=== PATIENT | female | born 1975 ===

== ENCOUNTER 2019-03-06 07:48 | Emergency (ER) | payer BC, OTHER ==
--- NOTE | 2019-03-06 08:09 | EDM.PDOC ---
ED HPI GENERAL MEDICAL PROBLEM - General Chief Complaint: ENT Problem Stated Complaint: POSSIBLE SINUS INFECTION Time Seen by Provider: 03/06/19 08:07 Source of Information: Reports: Patient - History of Present Illness INITIAL COMMENTS - FREE TEXT/NARRATIVE: HISTORY AND PHYSICAL: History of present illness: [With history of sinus infection presents with left sinus pain maxillary involvement no fever nausea vomiting chills sweats no chest pain shortness of breath headache dizziness or palpitation no bowel or urine symptoms Patient has] blood with ENT in the past she has been prescribed [id number]- Paks which she has had no reaction with along with prednisone she does use Revloc pot but is also allergic to many of the over the counter products hence is limited in what she can take Review of systems: As per history of present illness and below otherwise all systems reviewed and negative. Past medical history: As per history of present illness and as reviewed below otherwise noncontributory. Surgical history: As per history of present illness and as reviewed below otherwise noncontributory. Social history: No reported history of drug or alcohol abuse. Family history: As per history of present illness and as reviewed below otherwise noncontributory. Physical exam: HEENT: Atraumatic, normocephalic, pupils reactive, negative for conjunctival pallor or scleral icterus, mucous membranes moist, throat clear, neck supple, nontender, trachea midline. Tenderness left greater than right maxillary sinus no supraorbital tenderness tympanic membranes mildly injected no meningeal signs Lungs: Clear to auscultation, breath sounds equal bilaterally, chest nontender. Heart: S1S2, regular, negative for clicks, rubs, or JVD. Abdomen: Soft, nondistended, nontender. Negative for masses or hepatosplenomegaly. Negative for costovertebral tenderness. Pelvis: Stable nontender. Genitourinary: Deferred. Rectal: Deferred. Extremities: Atraumatic, negative for cords or calf pain. Neurovascular unremarkable. Neuro: Awake, alert, oriented. Cranial nerves II through XII unremarkable. Cerebellum unremarkable. Motor and sensory unremarkable throughout. Exam nonfocal. Diagnostics: [Clinical ] Therapeutics: [zPAC Prednisone ] Impression: [Sinusitits Definitive disposition and diagnosis as appropriate pending reevaluation and review of above. Sinus Pain Score (Numeric/FACES): 5 - Related Data Allergies Allergy/AdvReac Type Severity Reaction Status Date / Time azithromycin Allergy Shortness Verified 03/06/19 08:04 of Breath ciprofloxacin [From Cipro] Allergy Shortness Verified 08/29/15 09:57 of Breath ciprofloxacin HCl Allergy Shortness Verified 08/29/15 09:57 [From Cipro] of Breath erythromycin base Allergy Nausea Verified 08/29/15 09:57 [Erythromycin Base] montelukast sodium Allergy Shortness Verified 08/29/15 09:57 [From Singulair] of Breath Sulfa (Sulfonamide Allergy Nausea Verified 08/29/15 09:57 Antibiotics) Home Meds: Home Meds Cetirizine [ZyrTEC] 10 mg PO DAILY 08/29/15 [History] Levothyroxine Sodium [Levoxyl] 88 mcg PO DAILY 08/29/15 [History] Pantoprazole Sodium 20 mg PO BID 08/29/15 [History] Albuterol [Ventolin HFA] 1 puff INH ASDIRECTED PRN 01/12/16 [History] Budesonide [Pulmicort] 0.5 mg IH DAILY 03/06/19 [History] Past Medical History HEENT History: Reports: Allergic Rhinitis Cardiovascular History: Reports: None Respiratory History: Reports: Asthma (moderate) Gastrointestinal History: Reports: Other (See Below) Other Gastrointestinal History: heartburn and epigastric pain Genitourinary History: Reports: None [employer] History: Reports: Musculoskeletal History: Reports: None Neurological History: Reports: None Psychiatric History: Reports: Anxiety Endocrine/Metabolic History: Reports: Hypothyroidism, Other (See Below) Hematologic History: Reports: None Immunologic History: Reports: None Oncologic (Cancer) History: Reports: None Dermatologic History: Reports: None - Past Surgical History Head Surgeries/Procedures: Reports: None GI Surgical History: Reports: Cholecystectomy (09/01/15) ED ROS ENT - Review of Systems Review Of Systems: See Below ED EXAM, ENT - Physical Exam Exam: See Below Course - Vital Signs Last Recorded V/S: Last Vital Signs Temp 98.5 F 03/06/19 08:02 Pulse 81 03/06/19 08:02 Resp 18 03/06/19 08:02 BP 135/69 03/06/19 08:02 Pulse Ox 98 03/06/19 08:02 Departure - Departure Time of Disposition: 08:09 Disposition: Home, Self-Care 01 Condition: Good Clinical Impression: Sinusitis - Discharge Information Referrals: Ede Watson MD [Primary Care Provider] - Additional Instructions: The following information is given to patients seen in the emergency department who are being discharged to home. This information is to outline your options for follow-up care. We provide all patients seen in our emergency department with a follow-up referral. The need for follow-up, as well as the timing and circumstances, are variable depending upon the specifics of your emergency department visit. If you don't have a primary care physician on staff, we will provide you with a referral. We always advise you to contact your personal physician following an emergency department visit to inform them of the circumstance of the visit and for follow-up with them and/or the need for any referrals to a consulting specialist. The emergency department will also refer you to a specialist when appropriate. This referral assures that you have the opportunity for follow-up care with a specialist. All of these measure are taken in an effort to provide you with optimal care, which includes your follow-up. Under all circumstances we always encourage you to contact your private physician who remains a resource for coordinating your care. When calling for follow-up care, please make the office aware that this follow-up is from your recent emergency room visit. If for any reason you are refused follow-up, please contact the [facility] emergency department at and asked to speak to the emergency department charge nurse. Sepsis Event Note - Evaluation Sepsis Screening Result: No Definite Risk - Focused Exam Vital Signs: Vital Signs Temp Pulse Resp BP Pulse Ox 03/06/19 08:02 98.5 F 81 18 135/69 98 Date Exam was Performed: 03/06/19 Time Exam was Performed: 08:07
[2019-03-06 08:10] VITALS: BP 135/69; PULSE 81
== END 2019-03-06 08:24 | disposition home or self-care (01) ==
LOC: MW.ED 07:48
DX: J32.9 Chronic sinusitis, unspecified (principal); J45.909 Unspecified asthma, uncomplicated; F41.9 Anxiety disorder, unspecified; E03.9 Hypothyroidism, unspecified; Z88.1 Allergy status to other antibiotic agents; Z88.2 Allergy status to sulfonamides; Z88.8 Allergy status to other drugs, medicaments and biological substances; Z79.899 Other long term (current) drug therapy
CPT/HCPCS: 99283